=== PATIENT | male | born 1975 | race Caucasian/White ===

== ENCOUNTER 2022-12-13 11:05 | Emergency (ER) | payer SELFPAY ==
[~2022-12-13] VITALS: Ht 177.8 cm; Wt 74.8 kg
[2022-12-13] MEDS ORDERED: HYDROCODON-ACE1 EA11 PO (11:42)
[2022-12-13] MEDS ORDERED: HYDROCODONE/APAP 5MG-325MG TAB PO ONE (11:45)
== END 2022-12-13 12:03 | disposition home or self-care (01) ==
LOC: ER 11:12
DX: M54.50 Low back pain, unspecified (principal); M79.605 Pain in left leg; F17.210 Nicotine dependence, cigarettes, uncomplicated
CPT/HCPCS: 99283

== ENCOUNTER 2023-02-21 05:53 | Emergency (ER) | payer OTHER ==
[~2023-02-21] VITALS: Ht 177.8 cm; Wt 74.8 kg
[~2023-02-21 05:53] MED LIST: HYDROCODON-ACE1 EA11 PO
[2023-02-21] MEDS ORDERED: ORPHENADRINE CITRATE 30 MG/ML VIAL ONE (06:24)
[2023-02-21] MEDS ORDERED: KETOROLAC TROMETHAMINE 60 MG/2 ML VIAL ONE (06:24)
[2023-02-21] MEDS ORDERED: MEDROL4 M2 PO (06:29)
[2023-02-21] MEDS ORDERED: KETOROLAC TROMETHAMINE 60 MG/2 ML VIAL IM ONE (06:30)
[2023-02-21] MEDS ORDERED: ORPHENADRINE CITRATE 30 MG/ML VIAL IM ONE (06:30)
== END 2023-02-21 06:57 | disposition home or self-care (01) ==
LOC: ER 06:08
DX: M54.42 Lumbago with sciatica, left side (principal); G89.29 Other chronic pain
CPT/HCPCS: 99283; J1885; J2360

== ENCOUNTER 2024-09-11 08:29 | Emergency (ER) | payer OTHER ==
[~2024-09-11] VITALS: Ht 177.8 cm; Wt 74.8 kg
[~2024-09-11 08:29] MED LIST changes: +MEDROL4 M2 PO
[2024-09-11] MEDS: HYDROCODONE/APAP 7.5MG-325MG 1 EA TAB PO ONE (08:59)
[2024-09-11] MEDS: ONDANSETRON HCL 4 MG ORAL DISINTEGRATING TAB PO ONE (09:00)
[2024-09-11] MEDS: ACETAMINOPHEN 325 MG TAB PO ONE (09:00)
[2024-09-11] MEDS ORDERED: ACETAMINOPHEN 325 MG TAB ONE (09:03)
[2024-09-11 09:45] LABS: INFLUENZAE A&B ANTIGEN (RAPID) NEGATIVE (NEGATIVE); RESPIRATORY SYNC. VIRUS NEGATIVE (NEGATIVE)
[2024-09-11 13:49] LABS: BASOPHILS # (AUTO) 0.1 (0.0-0.1); BASOPHILS % 0.3 % (0.0-1.0); EOSINOPHILS % 0.1 % (0.0-6.0); HEMATOCRIT 35.4 % (38.2-49.6); HEMOGLOBIN 11.1 g/dL (14.0-18.0); LYMPHOCYTES # (AUTO) 1.5 (1.0-3.2); LYMPHOCYTES % 4.4 % (18.0-39.1); MEAN CORPUSCULAR HEMOGLOBIN 20.3 pg (28-32); MEAN CORPUSCULAR HGB CONC 31.4 g/dL (31-35); MEAN CORPUSCULAR VOLUME 64.7 fL (81-99); MONOCYTES # (AUTO) 1.7 (0.2-0.8); MONOCYTES % 5.1 % (4.4-11.3); NEUTROPHILS # (AUTO) 30.5 (2.1-6.9); NEUTROPHILS % 88.8 % (38.7-80.0); PLATELET COUNT 286 x10e3/uL (140-360); RED BLOOD COUNT 5.47 x10e6/uL (4.3-5.7); RED CELL DISTRIBUTION WIDTH 14.7 % (11.7-14.4); WHITE BLOOD COUNT 34.26 x10e3/uL (4.8-10.8)
[2024-09-11 14:05] LABS: INR 1.16; PROTHROMBIN TIME 15.4 seconds (11.9-14.5)
[2024-09-11 14:06] LABS: PARTIAL THROMBOPLASTIN TIME 36.5 seconds (23.8-35.5)
[2024-09-11] MEDS: SODIUM CHLORIDE 0.9% 1000ML 1,000 ML IV STA (14:06)
[2024-09-11 14:15] LABS: ALBUMIN 3.2 g/dL (3.5-5.0); ALBUMIN/GLOBULIN RATIO 0.8 (0.8-2.0); ANION GAP 16.5 mmol/L (8-16); BILIRUBIN,TOTAL 1.4 mg/dL (0.2-1.2); CALCIUM 9.1 mg/dL (8.4-10.2); CREATININE, SERUM 1.17 mg/dL (0.72-1.25); MAGNESIUM 1.9 MG/DL (1.3-2.1); POTASSIUM 3.5 mmol/L (3.5-5.1); TOTAL PROTEIN 7.4 g/dL (6.5-8.1)
[2024-09-11 14:21] LABS: TROPONIN I 0.001 ng/mL (0-0.300)
[2024-09-11 14:53] LABS: BAND NEUTROPHILS % (MANUAL) 2 %; LYMPHOCYTES % (MANUAL) 6 % (19-48); MONOCYTES % (MANUAL) 5 % (3.4-9.0); NEUTROPHILS % (MANUAL) 87 % (40-74)
[2024-09-11 14:54] LABS: MICROCYTOSIS MODERATE; PLATELET ESTIMATE ADEQUATE; PLATELET MORPHOLOGY COMMENT NORMAL
[2024-09-11 15:50] VITALS: PULSE 83; RESP 17; TEMP 99; O2SAT 100
== END 2024-09-11 16:30 | disposition other institution (70) ==
LOC: ER 08:37
DX: R50.9 Fever, unspecified (principal); A41.9 Sepsis, unspecified organism; J18.9 Pneumonia, unspecified organism; M54.9 Dorsalgia, unspecified; G89.29 Other chronic pain; Z11.52 Encounter for screening for COVID-19
CPT/HCPCS: 36415; 71045; 80053; 82550; 83605; 83735; 84484; 85025; 85610; 85730; 87040; 87400; 87420; 99285; J0456; J0696; J7030; J7050; Q0162; U0002